=== PATIENT | female | born 1965 | race Caucasian/White ===

== ENCOUNTER 2018-10-22 16:22 | Outpatient (CLI) | payer OTHER ==
--- NOTE | 2018-10-22 19:45 | RAD ---
CERVICAL SPINE THREE VIEWS: History: Chronic neck pain. Bilateral shoulder pain. Comparison: None. FINDINGS: Pre dental space is normal. There is no prevertebral soft tissue swelling. In the neutral position, t here is 1.5 mm of anterolisthesis of C4 upon C5. Upon extension, anterolisthesis resolves. Upon flexi on, there is 1.5 mm anterolisthesis of C4 upon C5. Cervical spine vertebral body height is maintained . There is no cervical spine fracture. IMPRESSION: 1. Grade I anterolisthesis of C4 upon C5. 2. Moderate degenerative disc disease at C5 upon C6. POS: [facility]
== END 2018-10-22 16:23 | disposition home or self-care (01) ==
LOC: TBSIIMAG 16:22
PROVIDERS: ATTEND Neurological Surgery
DX: M50.122 Cervical disc disorder at C5-C6 level with radiculopathy (principal); M43.12 Spondylolisthesis, cervical region
CPT/HCPCS: 72040

== ENCOUNTER 2019-01-04 05:44 | Day surgery (SDC) | payer OTHER ==
[2018-12-31 16:07] VITALS: BMI 24.2
[2019-01-04] MEDS ORDERED: Bupivacaine HCl 0.5%/Epinephrine 1:200,000/PF 30 ml Vial ONE (06:17)
[2019-01-04] MEDS ORDERED: Thrombin 5000 UNITS/5 ML VIAL ONE (06:17)
[2019-01-04] MEDS ORDERED: Fentanyl 100 MCG/2 ML VIAL ONE ×2 (06:37→08:25)
[2019-01-04] MEDS ORDERED: Midazolam HCl 2 mg/2 ml Vial ONE (06:47)
--- NOTE | 2019-01-04 07:34 | HP ---
HISTORY OF PRESENT ILLNESS: Ms. Brannon is a very pleasant 53-year-old, coming here today for evaluation of posterior neck, interscapular, and deltoid pain a C5 radicular pattern. She has received injections by Dr. Wolf and Dr. Conroy, resulted in only mild pain relief. She is here today to discuss other options and she would rather not pursue any surgery if possible. She has already attended physical therapy, which provided relief. While she was doing the exercises, that reveals early grade 1 slip at C4-5 with associated foraminal narrowing. PAST MEDICAL HISTORY: Significant for chronic pain, depression, headaches, anxiety, osteoarthritis, cervical surgery, right shoulder rotator cuff repair, bunionectomy of the right foot, HOME MEDICATIONS: 1. Lexapro. 2. Wellbutrin. 3. Valtrex. 4. Diclofenac. 5. Clonidine. 6. Flexeril. ALLERGIES: TO AUGMENTIN. PHYSICAL EXAMINATION: GENERAL: The patient is alert and oriented x3. MUSCULOSKELETAL: Gait is normal. No ataxia. Upper extremities reveal 5/5 strength in the bilateral upper extremities. Negative Spurling's. Negative Tinel's at the median nerves. Reflexes are equal and present bilaterally at the biceps tendon. ASSESSMENT: Cervical radicular pain. PLAN: Dr. Mcnally met with the patient, reviewed imaging, advocated for C4-5 ACDF. He explained to the patient the risks, benefits, and alternatives to the procedure. The patient expressed understanding and elected to move forward with surgery as discussed. I do believe the patient is mentally competent and capable of making medical decisions for herself. We will move forward with surgery as planned. Job ID: [id number]
[2019-01-04] MEDS ORDERED: Morphine 2 MG/ML SYRINGE ONE ×2 (09:08→09:31)
[2019-01-04] MEDS ORDERED: Cyclobenzaprine 10 MG TAB ONE (09:34)
[2019-01-04] MEDS ORDERED: Acetaminophen/Codeine 30-300mg Tablet ONE (10:57)
--- NOTE | 2019-01-04 13:38 | OP ---
DATE OF PROCEDURE: 01/04/2019 CONDUCTOR PULLMAN: David Garcia PA-C INDICATION: Pain. DIAGNOSES: C4-5 spondylolisthesis with C5 radiculopathy. PROCEDURE PERFORMED: Anterior cervical diskectomy and fusion, C4-C5. ANESTHESIA: General. DESCRIPTION OF PROCEDURE: The patient was brought into the operating room and placed under general anesthesia. She was placed on the table in a supine position. A transverse incision was planned over the lateral aspect of the neck on the right. After prepping and draping and after an appropriate preoperative pause, the incision was created. The underlying platysma muscle was identified and incised. A blunt tissue plane anterior to the sternocleidomastoid muscle was used to gain access to the prevertebral space. After identifying the appropriate level with C-arm fluoroscopy, an annulotomy was performed in the C4-C5 disk space. All disk material as well as anterior and posterior osteophytes were removed until the C4-C5 disk space was completely decompressed. A 6 mm lordotic PEEK cage packed with allograft and autograft material was placed within the interbody space. An anterior cervical plate was then fashioned to the front of spine and secured with a total of 4 fixed screws. Midline and lateral structures were inspected and found to be free from significant trauma. The wound was irrigated. Hemostasis was maintained throughout. The wound was then closed in anatomic layers and a pressure dressing was applied. There were no known procedural complications. Job ID: [id number]
[2019-01-04] MEDS ORDERED: Lidocaine 1% PF 5 ML VIAL ONE (17:04)
[2019-01-04] MEDS ORDERED: Glycopyrrolate 0.2 MG/ML 5 ML SYRINGE ONE (17:04)
[2019-01-04] MEDS ORDERED: Dexamethasone 20 MG/5 ML VIAL ONE (17:04)
[2019-01-04] MEDS ORDERED: PROPOFOL 200 MG/20 ML VIAL ONE (17:04)
[2019-01-04] MEDS ORDERED: Ondansetron PF 4 MG/2 ML Vial ONE (17:04)
[2019-01-04] MEDS ORDERED: Rocuronium Bromide 10 MG/ML (10ML VIAL) ONE (17:04)
== END 2019-01-04 11:20 | disposition home or self-care (01) ==
LOC: SDC 05:44
PROVIDERS: ATTEND Neurological Surgery
PROC: 0RT30ZZ Resection of Cervical Vertebral Disc, Open Approach (ICD-10-PCS; principal; 2019-01-04)
PROC: 0RG10A0 Fusion of Cervical Vertebral Joint with Interbody Fusion Device, Anterior Approach, Anterior Column, Open Approach (ICD-10-PCS; principal; 2019-01-04)
DX: M43.12 Spondylolisthesis, cervical region (principal); M54.12 Radiculopathy, cervical region; F32.9 Major depressive disorder, single episode, unspecified; M19.90 Unspecified osteoarthritis, unspecified site; F41.9 Anxiety disorder, unspecified; Z79.1 Long term (current) use of non-steroidal anti-inflammatories (NSAID); Z79.899 Other long term (current) drug therapy; Z88.1 Allergy status to other antibiotic agents
CPT/HCPCS: 76000; C1713; C1776; J0131; J0670; J0690; J1100; J2001; J2250; J2270; J2405; J2704; J3010

== ENCOUNTER 2019-04-22 15:33 | Outpatient (CLI) | payer OTHER ==
--- NOTE | 2019-05-07 15:07 | MMO ---
Bilateral MAMMO Bilat Screen [facility]. CLINICAL HISTORY: Patient is 53 years old and is seen for screening. The patient has no family history of breast cancer. The patient has no personal history of cancer. VIEWS: The views performed were: bilateral craniocaudal with tomosynthesis and bilateral mediolateral oblique with tomosynthesis. FILMS COMPARED: The present examination has been compared to prior imaging studies performed at [facility] on 03/19/2016 and 08/11/2017. MAMMOGRAM FINDINGS: The breasts are heterogeneously dense, which could obscure a lesion on mammography. There are no suspicious masses, suspicious calcifications, or new areas of architectural distortion. IMPRESSION: THERE IS NO MAMMOGRAPHIC EVIDENCE OF MALIGNANCY. A ROUTINE FOLLOW-UP MAMMOGRAM IN 1 YEAR IS RECOMMENDED. THE RESULTS OF THIS EXAM WERE SENT TO THE PATIENT. ACR BI-RADS Category 1 - Negative MAMMOGRAPHY NOTE: 1. A negative mammogram report should not delay a biopsy if a dominant of clinically suspicious mass is present. 2. Approximately 10% to 15% of breast cancers are not detected by mammography. 3. Adenosis and dense breasts may obscure an underlying neoplasm. Reported by: DELIA RESENDIZ MD Electonically Signed: [id number]
== END 2019-04-22 15:34 | disposition home or self-care (01) ==
LOC: BICMAMMO 15:33
PROVIDERS: ATTEND Family Medicine
DX: Z12.31 Encounter for screening mammogram for malignant neoplasm of breast (principal)
CPT/HCPCS: 77063; 77067

== ENCOUNTER 2023-03-20 13:27 | Outpatient (CLI) | payer OTHER | END 2023-03-20 13:28 | disposition home or self-care (01) | LOC: RAD 13:27 | PROVIDERS: ATTEND Student in an Organized Health Care Education/Training Program | DX: M25.531 Pain in right wrist (principal); M18.11 Unilateral primary osteoarthritis of first carpometacarpal joint, right hand ==

== ENCOUNTER 2025-04-10 14:09 | Emergency (ER) | payer OTHER | END 2025-04-10 15:23 | disposition home or self-care (01) | LOC: ERS 14:09 | DX: R09.A2 Foreign body sensation, throat (principal) | CPT/HCPCS: 99283 ==